=== PATIENT | female | born 1990 | race Caucasian/White ===

== ENCOUNTER 2018-01-17 16:40 | Emergency (ER) | payer BC ==
[~2018-01-17] VITALS: Ht 165.1 cm; Wt 144.3 kg
[2018-01-17] MEDS ORDERED: VENTOLIN HFA18 GM IH (18:32)
[2018-01-17] MEDS ORDERED: FIORICET 50-301 EAC1 PO (18:32)
[2018-01-17 18:38] VITALS: BP 176/106
== END 2018-01-17 18:40 | disposition home or self-care (01) ==
LOC: EME 16:40
DX: R51 Headache (principal); J45.901 Unspecified asthma with (acute) exacerbation; I10 Essential (primary) hypertension; F17.200 Nicotine dependence, unspecified, uncomplicated
CPT/HCPCS: 71046; 94640; 99281; 99285; J1100; J1885